=== PATIENT | male | born 1960 | race African-American/Black ===

== ENCOUNTER 2018-02-13 05:26 | Inpatient (IN) | payer BC, OTHER ==
[2018-02-01 13:58] LABS: HEMATOCRIT 45.8 % (42.0-52.0); HEMOGLOBIN 15.4 gm/dL (14.0-18.0); MCH 31.7 pg (26.0-34.0); MCHC 33.6 g/dL (28.0-37.0); MCV 94.3 fL (80.0-100.0); RBC 4.85 mil/uL (4.50-6.00); RDW 14.6 % (10.5-14.5); WBC 7.7 thou/uL (4.0-11.0)
[2018-02-01 14:06] LABS: URINE BILIRUBIN NEGATIVE (Negative); URINE BLOOD NEGATIVE (Negative); URINE CLARITY CLEAR; URINE COLOR YELLOW; URINE GLUCOSE-RANDOM* NEGATIVE (Negative); URINE KETONES NEGATIVE (Negative); URINE LEUKOCYTES-REFLEX NEGATIVE (Negative); URINE NITRITE-REFLEX NEGATIVE (Negative); URINE PROTEIN (DIPSTICK) NEGATIVE (Negative); URINE SPECIFIC GRAVITY >= 1.030 (1.005-1.035); URINE UROBILINOGEN 0.2 E.U./dl (0.2-1.0)
[2018-02-01 14:14] LABS: ALBUMIN 4.5 g/dL (3.4-5.0); CALCIUM 9.4 mg/dL (8.5-10.1); CREATININE 1.1 mg/dL (0.7-1.3); POTASSIUM 4.2 mmol/L (3.5-5.1)
[~2018-02-13] VITALS: Ht 185.4 cm; Wt 110.2 kg
--- NOTE | ~2018-02-13 | D ---
[facility] [place] [address] DISCHARGE SUMMARY Name: PABLO VELAZCO Diane Room #: 408-P [facility] IN M.R.#: [id number] Admission: 02/13/18 Attend Phys: Nigel De Anda MD Discharge: 02/15/18 Date of : 60 Report #: [id number] THIS REPORT FOR: //name// CC: Nigel BOB unknown DATE OF SERVICE: 02/15/2018 FINAL DIAGNOSIS: End-stage degenerative arthritis, right hip. OPERATIONS AND PROCEDURES: Right total hip arthroplasty. HISTORY OF PRESENT ILLNESS: This fit, active 57-year-old gentleman has progressive severe right hip pain with clinical and x-ray evidence of severe degenerative arthritis. He has tried conservative management without much benefit. He has elected to go ahead with total hip replacement. HOSPITAL COURSE: The patient was admitted and taken to the operating room on 02/13/2018. He underwent right total hip arthroplasty, which he tolerated quite well. Postoperatively, his course was largely unremarkable. He was able to rapidly advance from IV analgesics to oral analgesics. He was able to make good progress with physical therapy and was able to advance to independent ambulation using a walker for balance and protection. The hip wound appears to be healing nicely. He is functionally independent and having no particular complaints or problems. He seems ready for discharge and safe for independent exercise at home. DISCHARGE MEDICATIONS: Include Xarelto 10 mg daily and hydrocodone 10/325 one q. 4-6 hours p.r.n. for pain. DISCHARGE INSTRUCTIONS: He will continue independent exercise at home and follow up in my office in 2 weeks for followup and suture removal. Pending his progress, we may also advance to some outpatient therapy if necessary. <ELECTRONICALLY SIGNED> By: Nigel De Anda MD 02/17/18 0751 [id number] Nigel De Anda MD /nt
--- NOTE | ~2018-02-13 | O ---
[facility] [place] [address] OPERATIVE REPORT Name: PABLO VELAZCO Diane Room #: 408-P [facility] IN M.R.#: [id number] Admission: 02/13/18 Attend Phys: Nigel De Anda MD Discharge: Date of : 60 Report #: [id number] THIS REPORT FOR: //name// CC: Nigel BOB unknown DATE OF SERVICE: 02/13/2018 PREOPERATIVE DIAGNOSIS: End-stage degenerative arthritis, right hip. POSTOPERATIVE DIAGNOSIS: End-stage degenerative arthritis, right hip. PROCEDURE: Right total hip arthroplasty. SURGEON: Nigel De Anda MD INDICATIONS: This fit, active 57-year-old gentleman complains of progressive bilateral hip pain. Clinical exam and x-rays confirm moderate degenerative change with moderate lateral femoral head subluxation and joint space narrowing with degenerative cyst formation. The right hip is more symptomatic than the left. He also has moderate degenerative spondylosis with some low back pain and possibly some radiating radicular symptoms. We have discussed all these problems will contribute to his ongoing discomfort, but at this point, the right hip seems to be the primary issue, and he has elected to go ahead with right total hip arthroplasty. DESCRIPTION OF PROCEDURE: The patient was taken to the operating room, where he was placed under general anesthesia. Prophylactic intravenous antibiotics were administered. He was turned to the left lateral decubitus position. The right hip and thigh were meticulously prepped and draped. A slightly curving posterolateral skin incision was made and carried through fascia, exposing the posterior aspect of the hip joint. The short external rotators and capsule were taken down and tagged with several #1 Tevdek sutures. The hip was dislocated and moderately severe degenerative change in both the femoral head and acetabulum were noted. A femoral neck osteotomy was performed and the canal was opened with reamers and hand broaches. The [employer]hew hip system was utilized and the hip seemed to be best suited for a size 15 Synergy porous femoral component. The trial broach fit nicely and the calcar was trimmed down to an appropriate level. The trial component was removed and attention directed to the acetabulum, exposure was somewhat difficult as he is moderately large and muscular. Adequate exposure was established and a very severely degenerative labrum was debrided. The acetabulum was then sequentially reamed, gradually advancing to a size 56 mm reamer. A 56 mm outside diameter StikTite 3-hole hemispherical shell was then inserted. This was positioned in alignment with his true acetabulum, placing this in about 20 degrees of anteversion and about 45 degrees off of vertical. It was impacted into position and seated nicely and [address] [address] OPERATIVE REPORT Name: JUAN A,PABLO A Room #: 408-P [facility] IN ..#: [id number] Admission: 02/13/18 Attend Phys: Nigel De Anda MD Discharge: Date of : 60 Report #: [id number] appeared to be secure. In addition, 3 screws were placed through the apex of the shell, engaging good periacetabular bone, adding to stability. A 56 mm outside diameter x 40 mm inside diameter shell was then inserted. This was positioned with the 20-degree elevated rim at about the 9 o'clock posterior position. It was impacted into place and seated nicely and appeared to be secure. The permanent femoral component was then implanted, the size 15 Synergy porous femoral component was inserted, placing this in about 20 degrees of anteversion. It seated nicely and appeared to be secure. Trial reduction was performed and the hip seemed best suited for a +0 mm neck length component. The appropriate size 40 cobalt chrome head using a +0 neck length sleeve was then assembled and impacted on to the Young taper neck. It seated nicely and appeared to be secure. The hip was reduced. Alignment, range of motion, stability and leg length were assessed and felt to be satisfactory. The wound was copiously irrigated. Good hemostasis was established. The short external rotators and capsule were then repaired back to bone using the #1 Tevdek sutures, passed through drill holes in the greater trochanter. This added to overall hip stability. A single Hemovac was left in the wound, exiting through a separate stab incision. The fascia was closed with multiple #1 Vicryl sutures. The subcutaneous tissues were closed with 0 Monocryl. The skin was closed with skin chelsi. A sterile dressing was applied. The patient was then awakened and returned to recovery room in good condition. <ELECTRONICALLY SIGNED> By: Nigel De Anda MD 02/14/18 0814 [id number] [id number] Nigel De Anda MD /nt
--- NOTE | ~2018-02-13 | EKG ---
[address] [address] ELECTROCARDIOGRAM REPORT Name: PABLO VELAZCO Room #: [facility]#: [id number] Admission: Attend Phys: Nigel De Anda MD Discharge: Date of : 60 Report #: [id number] THIS REPORT FOR: //name// [facility] Test Date: 2018-02-01 Test Time: 13:21:37 Pat Name: PABLO VELAZCO Department: Room: Gender: Meter Attendant: Name : 1960 Requested By: Nigel De Anda Order Number: [id number] MD: Reinier Sheldon Measurements Intervals [place]amond Rate: 86 P: 56 TN: 166 QRS: 44 QRSD: 96 T: 17 QT: 352 QTc: 421 Interpretive Statements Sinus rhythm Normal tracing No previous ECG available for comparison Electronically Signed On 02-02-2018 7:24:36 CDT by Reinier Sheldon [email or web address] <ELECTRONICALLY SIGNED> By: Reinier Sheldon MD, [facility] 02/02/18 0724 1321 1321 Reinier Sheldon MD, FACC /EPI
[~2018-02-13 05:26] MED LIST: ASPIRIN325 PO; CENTRUM SILVER1 EAC2 PO; CURCUMIN1 GM PO; VIAGRA25 MG PO; VITAMIN D1000 UNI1 PO
[2018-02-13 07:30] VITALS: BP 141/89
[2018-02-13 12:15] VITALS: BP 147/80
[2018-02-13 17:50] VITALS: BP 145/93
[2018-02-13 19:45] VITALS: BP 158/79
[2018-02-13 23:55] VITALS: BP 162/88
[2018-02-14 04:52] VITALS: BP 150/76
[2018-02-14 06:34] LABS: HEMATOCRIT 36.3 % (42.0-52.0); HEMOGLOBIN 12.1 gm/dL (14.0-18.0); MCH 31.5 pg (26.0-34.0); MCHC 33.3 g/dL (28.0-37.0); MCV 94.5 fL (80.0-100.0); RBC 3.84 mil/uL (4.50-6.00); RDW 14.1 % (10.5-14.5); WBC 12.3 thou/uL (4.0-11.0)
[2018-02-14 07:20] VITALS: BP 138/90
[2018-02-14 09:19] LABS: CALCIUM 8.1 mg/dL (8.5-10.1); CREATININE 0.9 mg/dL (0.7-1.3); MAGNESIUM 1.7 mg/dL (1.8-2.4); POTASSIUM 4.1 mmol/L (3.5-5.1)
[2018-02-14 15:28] VITALS: BP 152/97
[2018-02-14 21:04] VITALS: BP 151/86
[2018-02-15 05:47] VITALS: BP 149/83
[2018-02-15 06:22] LABS: CALCIUM 8.5 mg/dL (8.5-10.1); HEMATOCRIT 35.6 % (42.0-52.0); HEMOGLOBIN 11.8 gm/dL (14.0-18.0); MAGNESIUM 2.1 mg/dL (1.8-2.4); MCH 31.3 pg (26.0-34.0); MCHC 33.2 g/dL (28.0-37.0); MCV 94.4 fL (80.0-100.0); PLATELET COUNT 191 thou/uL (150-400); POTASSIUM 3.7 mmol/L (3.5-5.1); RBC 3.77 mil/uL (4.50-6.00); WBC 12.2 thou/uL (4.0-11.0)
[2018-02-15 08:00] LABS: ABSOLUTE NEUTROPHILS 7.7 thou/uL (1.4-8.2); ATYPICAL LYMPHS 1 %
[2018-02-15] MEDS ORDERED: XARELTO10 MG PO (08:25)
[2018-02-15] MEDS ORDERED: NORCO 10-325 T1 EACH PO (08:25)
[2018-02-15] MEDS ORDERED: MIRALAX17 GM PO (08:26)
[2018-02-15] MEDS ORDERED: COLACE 100 MG100 MG PO (08:26)
[2018-02-15 09:55] VITALS: BP 135/92
[2018-02-15 14:28] VITALS: BP 135/92
== END 2018-02-15 15:47 | disposition home or self-care (01) | DRG 470 ==
LOC: 4N 05:26 → TBA 05:26 → PRE 05:35 → 4N 11:33 → PRE 12:47 → ENTRNSPT 02-15 14:35 → EDTRNSPTSTS 02-15 14:38 → 4N 02-15 15:47
PROVIDERS: Nurse Practitioner; Orthopaedic Surgery
PROC: 0SR90JZ Replacement of Right Hip Joint with Synthetic Substitute, Open Approach (ICD-10-PCS; principal; 2018-02-13)
DX: M16.11 Unilateral primary osteoarthritis, right hip (principal); I10 Essential (primary) hypertension; F17.210 Nicotine dependence, cigarettes, uncomplicated; E83.42 Hypomagnesemia; Z79.899 Other long term (current) drug therapy; Z79.82 Long term (current) use of aspirin; Z71.6 Tobacco abuse counseling
CPT/HCPCS: 10790; 50010; 50101; 50382; 50414; 51412; 51771; 53000; 53367; 56521; 56525; 56527; 62110; 62900; 70005